=== PATIENT | male | born 1990 | race Caucasian/White ===

== ENCOUNTER 2022-11-26 11:24 | Emergency (ER) | payer OTHER, SELFPAY ==
[2022-11-26 11:55] VITALS: BP 151/77; PULSE 81; RESP 16; TEMP 37.3; O2SAT 99
[2022-11-26] MEDS: TETANUS,DIPHTHERIA,AC PERTUSSIS ADULT (0.5 ML) BOOSTRIX IM (13:12)
--- NOTE | 2022-11-26 13:16 | PC.NURSE ---
PROVIDER ORDERED A 10ML VIAL OF LIDOCAINE, WHICH WE DO NOT CARRY. PROVIDER WAS GIVEN 5 TOTAL OF THE 2 ML VIALS.
--- NOTE | 2022-11-26 13:28 | ED.GENADULT ---
HPI - General Adult General Chief complaint: Skin/Abscess/Foreign Body Stated complaint: Left Leg Skin Sore Source: patient Mode of arrival: ambulatory Limitations: no limitations History of Present Illness HPI narrative: PATIENT PRESENTS FOR EVALUATION OF A WOUND TO THE LEFT LOWER EXTREMITY. HE INDICATES HE HAD A SIMILAR SKIN PRESENTATION BACK IN LATE SEPTEMBER WHILE HE WAS IN [place]. HE STOPPED IN URGENT CARE AND WAS GIVEN A PRESCRIPTION FOR BACTRIM WHICH HE TOOK FOR ABOUT FIVE DAYS. HE STATES HE WAS NOT TAKING BID DIRECTED, OPTING TO ONLY TAKE ONCE DAILY. HE WAS THEN TRAVELING FOR GOT HIS MEDICATION AT HOME SO DID NOT COMPLETE THERAPY. THREE DAYS AGO HE NOTED A SIMILAR PRESENTATION TO LEFT LOWER EXTREMITY IN THE SAME AREA. HE STARTED TAKING BACTRIM AGAIN ONCE DAILY. TODAY HE WAS SHOWERING AND NOTED SOME DRAINAGE FROM THE AFFECTED AREA WHICH SHE DESCRIBES A MIX OF PURULENCE AND SEROSANGUINEOUS. HE IS NOT DIABETIC. NO FEVER, CHILLS, NAUSEA, VOMITING. DATE OF LAST TETANUS UNKNOWN. HE SMOKES 1-1.5 PACKS PER DAY. Related Data Allergies Allergy/AdvReac Type Severity Reaction Status Date / Time amoxicillin Allergy Heartburn Verified 11/26/22 12:03 Review of Systems Review of Systems: CONSTITUTIONAL: DENIES FEVER, CHILLS, OR SWEATS. EYES: DENIES VISUAL CHANGES, REDNESS, OR DISCHARGE. ENT: DENIES RHINORRHEA, CONGESTION, SORE THROAT, OR OTALGIA. CARDIOVASCULAR: DENIES CHEST PAIN, PALPITATIONS, OR EDEMA. RESPIRATORY: DENIES COUGH OR DYSPNEA. GASTROINTESTINAL: DENIES ABDOMINAL PAIN, NAUSEA, VOMITING, OR DIARRHEA. GENITOURINARY: DENIES DYSURIA OR HEMATURIA. SKIN: REPORTS REDNESS AND DRAINAGE FROM A LESION TO THE LEFT LOWER EXTREMITY MUSCULOSKELETAL: REPORTS PAIN TO LEFT LOWER LEG NEUROLOGIC: DENIES HEADACHE, NUMBNESS, DIZZINESS, OR WEAKNESS. PSYCHIATRIC: DENIES ANXIETY OR DEPRESSION. [facility] Past Medical History Medical History No pertinent past medical history Surgical History Surgical History No pertinent past surgical history Family History Family History Mother Family history non-contributory Social History Social History Smoking packs per day: 1.25 Smoking cigarettes per day: 25.0 Smoking status: Current every day smoker Alcohol intake: current Gender identity (if verbalized by the patient): Male Spiritual care concerns: No Exam Narrative: GENERAL: WELL-APPEARING, WELL-NOURISHED, AND IN NO ACUTE DISTRESS. HEAD: NORMOCEPHALIC, ATRAUMATIC. EYES: PERRLA AND EOMI. ENT: NARES CLEAR, NO RHINORRHEA OR EPISTAXIS. MUCOUS MEMBRANES MOIST. OROPHARYNX WITHOUT TONSILLAR HYPERTROPHY EXUDATE OR OTHER LESIONS. BILATERAL TMS PEARLY ARMAS NONBULGING NECK: SUPPLE. NO ADENOPATHY OR MASSES. NO CAROTID BRUITS OR JVD CHEST: CLEAR TO AUSCULTATION. NO RESPIRATORY DISTRESS. NO WHEEZES RALES OR RHONCHI HEART: REGULAR RATE AND RHYTHM. NO MURMUR HEARD. NORMAL PERIPHERAL PULSES. ABDOMEN: SOFT, NONTENDER, NONDISTENDED, NORMAL ACTIVE BOWEL SOUNDS. EXTREMITIES: NORMAL RANGE OF MOTION. NO EDEMA. SKIN: THERE IS A 6 X 8 CM AREA OF ERYTHEMA TO THE LATERAL ASPECT OF THE LEFT LOWER EXTREMITY. THERE IS A CENTRAL AREA OF PURPLE DISCOLORATION WHICH IS APPROXIMATELY 2 CM IN SIZE. THIS IS ACTIVELY DRAINING A SMALL AMOUNT OF SEROSANGUINEOUS DRAINAGE. NEURO: NO FOCAL DEFICITS. ALERT AND ORIENTED X3. PSYCH: NORMAL MOOD AND AFFECT. Course Course Emergency Course: THIS IS A 32-YEAR-OLD MALE WHO PRESENTED FOR EVALUATION OF A DRAINING WOUND TO THE LEFT LOWER EXTREMITY. WE OPTED TO PERFORM I AND D TO HELP FACILITATE DRAINAGE. PATIENT TOLERATED WELL. WOUND WAS CULTURED BY RN. MIRYAM LOVE WITH BACTRIM AND KEFLEX. INSTRUCTED ON WOUND CARE. FOLLOW UP WITH PRIMARY PROVIDER. GO TO ER FOR WORSENING SYMPTOMS
== END 2022-11-26 13:34 | disposition home or self-care (01) ==
PROVIDERS: Emergency Provider Nurse Practitioner; PCP Emergency Medicine
DX: L02.416 Cutaneous abscess of left lower limb (principal); F17.210 Nicotine dependence, cigarettes, uncomplicated; Z23 Encounter for immunization
CPT/HCPCS: 10060; 87070; 87147; 87181; 87186; 87205; 90471; 90715; 99203; G0463

== ENCOUNTER 2023-01-08 08:25 | Emergency (ER) | payer OTHER, SELFPAY ==
--- NOTE | 2023-01-08 08:31 | ED.MALEGU ---
HPI - Male Genitourinary General Chief complaint: Urogenital-Male Stated complaint: Swollen Scrotem Time Seen by Provider: 01/08/23 09:15 Mode of arrival: ambulatory Limitations: no limitations History of Present Illness HPI Narrative: 32-year-old male presents with concern for a wound on his scrotum. He reports that 3 days ago he noticed a raised cyst on his scrotum, he reports he was working in on his feet a lot when the cyst opened up and drained. He reports after drain purulent drainage the skin around the area on the scrotum is painful, red, swollen. He denies testicular pain, dysuria, frequency, urgency, hematuria. He denies fever, aches, chills, sweats. MD Complaint: other (Scrotal infection) Related Data Allergies Allergy/AdvReac Type Severity Reaction Status Date / Time amoxicillin Allergy Intermediate Heartburn Verified 01/08/23 08:56 Review of Systems Review of Systems: CONSTITUTIONAL: Denies malaise, chills, sweats, or fever. CARDIOVASCULAR: Denies chest pain, palpitations, or edema. RESPIRATORY: Denies cough or dyspnea. GASTROINTESTINAL: Denies abdominal pain, nausea, vomiting, diarrhea GENITOURINARY: Denies dysuria or hematuria. SKIN: Reports redness, swelling of the skin of the scrotum on the right MUSCULOSKELETAL: Denies myalgia. All systems reviewed & are unremarkable except as noted in HPI and below PMFSH Past Medical History Medical History (Updated 01/08/23 @ 09:25 by Klaudia Garay NP) No pertinent past medical history Surgical History Surgical History No pertinent past surgical history Family History Family History Mother Family history non-contributory Social History Social History Smoking packs per day: 1.25 Smoking cigarettes per day: 25.0 Smoking status: Current every day smoker Alcohol intake: current Gender identity (if verbalized by the patient): Male Spiritual care concerns: No Comments At time of signature, agree with nursing past medical, surgical, social and family history. There is no relevant family history pertinent to the presenting complaint Exam Narrative: GENERAL: Well-appearing, well-nourished, and in no acute distress. HEAD: Normocephalic, atraumatic. EYES: PERRLA, sclera clear, and EOMI. No nystagmus. ENT: Nares clear. Mucous membranes moist. NECK: Supple. CHEST: No respiratory distress. Clear to auscultation. No bony deformities, no asymmetry. Speaks in full sentences. HEART: Regular rate and rhythm. No murmur heard. Normal peripheral pulses. ABDOMEN: Soft, nontender, nondistended SKIN: Warm, dry. See scrotal exam NEURO: Alert and oriented x3. PSYCH: Normal mood and affect : Penis: Yes normal penis Meatus: meatus normal Scrotum: erythematous, testes descended bilaterally and scrotal swelling Testes: Testes normal and epididymides normal Male genitals images: 1. Indurated, erythematous, mildly edematous skin with no fluctuation noted. Sharp margins. No testicular pain, swelling Course Course Emergency Course: Patient is aware of diagnosis, understands and agrees to treatment plan. Anticipatory guidance given. Patient agrees to follow-up as directed and is aware of reasons to seek care at the emergency department. Portions of this record may have been created with voice recognition software Level of Care: Express Care Visit Vital Signs Vital signs: Reviewed. MDM - Male Genitourinary MDM Narrative Medical decision making narrative: Does not appear at this time to be erythema multiforme, bullous, SJS, TEN; no evidence at this time to suggest RMSF, NSTI, endocarditis or Lyme disease; patient looks well, nontoxic and is tolerating oral intake; no neurologic signs or symptoms; no headache, photophobia or neck pain; afebrile. Patient yao
[2023-01-08 08:35] VITALS: BP 143/77; PULSE 70; RESP 18; TEMP 37.1; O2SAT 100
== END 2023-01-08 09:27 | disposition home or self-care (01) ==
PROVIDERS: Emergency Provider Nurse Practitioner
DX: N49.2 Inflammatory disorders of scrotum (principal); F17.210 Nicotine dependence, cigarettes, uncomplicated
CPT/HCPCS: 87070; 87147; 87181; 87186; 87205; 99213; G0463

== ENCOUNTER 2023-06-30 09:58 | Emergency (ER) | payer OTHER, SELFPAY ==
--- NOTE | 2023-06-30 10:05 | ED.SKABFB ---
HPI - Skin/Abscess/Foreign Bdy General Chief complaint: Skin/Abscess/Foreign Body Stated complaint: cyst on back of left ear Time Seen by Provider: 06/30/23 10:36 Source: patient and RN notes reviewed Mode of arrival: ambulatory Limitations: no limitations History of Present Illness HPI narrative: 32-year-old male presents with concern for a cyst behind his left ear. Reports has been there about a week. Reports it increased in pain and size today. He reports he has had these before with a drain on their own. He reports history of having have cyst back in his ears and on his face drained. He denies general malaise, fever, aches, chills, sweats. MD complaint: abscess/boil Related Data Home Medications Medication Instructions Recorded Confirmed testosterone 06/30/23 Allergies Allergy/AdvReac Type Severity Reaction Status Date / Time amoxicillin Allergy Intermediate Heartburn Verified 01/08/23 08:56 Review of Systems Review of Systems: CONSTITUTIONAL: Denies malaise, chills, sweats, or fever. EYES: Denies redness, or discharge. ENT: Denies rhinorrhea, congestion, swollen lips, swollen tongue CARDIOVASCULAR: Denies chest pain, palpitations, or edema. RESPIRATORY: Denies cough or dyspnea. GASTROINTESTINAL: Denies abdominal pain, nausea, vomiting SKIN: Reports cyst behind his left ear MUSCULOSKELETAL: Denies joint pain or myalgia. NEUROLOGIC: Denies headache. All systems reviewed & are unremarkable except as noted in HPI and below PMFSH Past Medical History Medical History (Updated 06/30/23 @ 10:48 by Klaudia Garay NP) No pertinent past medical history Surgical History Surgical History No pertinent past surgical history Family History Family History Mother Family history non-contributory Social History Social History Smoking packs per day: 1.25 Smoking cigarettes per day: 25.0 Smoking status: Current every day smoker Alcohol intake: current Gender identity (if verbalized by the patient): Male Spiritual care concerns: No Comments At time of signature, agree with nursing past medical, surgical, social and family history. There is no relevant family history pertinent to the presenting complaint Exam Narrative: GENERAL: Well-appearing, well-nourished, and in no acute distress. HEAD: Normocephalic, atraumatic. EYES: PERRLA, conjunctivae clear ENT: Mucous membranes moist. NECK: Supple. No lymphadenopathy CHEST: Clear to auscultation. No respiratory distress. HEART: Regular rate and rhythm. SKIN: Warm, dry. Approximately 3 cm x 2 cm fluctuant abscess noted behind the left ear NEURO: Alert and oriented x3. PSYCH: Normal mood and affect Course Course Emergency Course: Patient is aware of diagnosis, understands and agrees to treatment plan. Anticipatory guidance given. Patient agrees to follow-up as directed and is aware of reasons to seek care at the emergency department. Portions of this record may have been created with voice recognition software Level of Care: Express Care Visit Vital Signs Vital signs: Vital Signs Temperature 98.7 F 06/30/23 10:18 Pulse Rate 62 06/30/23 10:18 Respiratory Rate 16 06/30/23 10:18 Blood Pressure 128/56 L 06/30/23 10:18 Pulse Oximetry 98 06/30/23 10:18 Oxygen Delivery Room Air 06/30/23 10:18 Temperature 98.7 F 06/30/23 10:18 Pulse Rate 62 06/30/23 10:18 Respiratory Rate 16 06/30/23 10:18 Blood Pressure 128/56 L 06/30/23 10:18 Pulse Oximetry 98 06/30/23 10:18 Oxygen Delivery Room Air 06/30/23 10:18 Reviewed. Procedures Abscess I/D scalp: Date of Incision: 06/30/23 Time of Incision: 10:40 Side (if applicable): left Technique: needle aspiration Amount of fluid expressed (mL):
[2023-06-30 10:18] VITALS: BP 128/56; PULSE 62; RESP 16; TEMP 37.1; O2SAT 98
== END 2023-06-30 10:57 | disposition home or self-care (01) ==
PROVIDERS: Emergency Provider Nurse Practitioner
DX: L02.811 Cutaneous abscess of head [any part, except face] (principal); F17.210 Nicotine dependence, cigarettes, uncomplicated
CPT/HCPCS: 10160; 87070; 87075; 87076; 87205; 99213; G0463